=== PATIENT | female | born 1980 | race Caucasian/White ===

== ENCOUNTER 2019-01-18 21:55 | Emergency (ER) | payer SELFPAY ==
[2019-01-18 22:19] LABS: Bilirubin Negative (Negative); Clarity Slightly Cloudy (Clear); Glucose, Urine (Dipstick) Negative (Negative); Leukocyte Moderate (Negative); Nitrite Positive (Negative); Protein, Urine (Dipstick) 30 mg/dL (Neg-Trace); Specific Gravity, Urine 1.025 (1.005-1.030); pH, Urine 5.5 (5.0-9.0)
[2019-01-18 22:20] LABS: Blood, Urine Trace (Negative)
--- NOTE | 2019-01-18 22:21 | RAD ---
EXAM: Chest 2 views: HISTORY: Fever and body aches COMPARISON: None. FINDINGS: There is a normal-sized cardiomediastinal silhouette. There is no evidence of consolidation, mass, or pleural effusion. The bones are unremarkable. IMPRESSION: No evidence of acute cardiopulmonary disease
[2019-01-18 22:22] LABS: Bacteria/HPF 4+ HPF (None Seen); Squamous Epithelial 0-3 HPF (0-3); Transitional Epithelial 0-3 HPF (0-3); WBC/HPF 21-50 HPF (0-3)
[2019-01-18] MEDS ORDERED: cefTRIAXone\\ROCEPHIN 1 GM VIAL ONE (22:25)
[2019-01-18] MEDS ORDERED: Nitrofurantoin Monohyd/M-Cryst 100 MG CAP ONE (22:25)
== END 2019-01-18 22:34 | disposition home or self-care (01) ==
LOC: BURERS 21:55
DX: N12 Tubulo-interstitial nephritis, not specified as acute or chronic (principal); F17.210 Nicotine dependence, cigarettes, uncomplicated
CPT/HCPCS: 71046; 81003; 81015; 87077; 87086; 87186; 96372; J0696

== ENCOUNTER 2019-02-11 01:03 | Emergency (ER) | payer SELFPAY ==
[2019-02-11] MEDS ORDERED: Cyclobenzaprine 10 MG TAB ONE (01:26)
[2019-02-11] MEDS ORDERED: Ketorolac Tromethamine 30 MG/ML VIAL ONE (01:26)
== END 2019-02-11 01:37 | disposition home or self-care (01) ==
LOC: BURERS 01:03
DX: M54.16 Radiculopathy, lumbar region (principal); M79.605 Pain in left leg; F17.210 Nicotine dependence, cigarettes, uncomplicated
CPT/HCPCS: 96372; J1885

== ENCOUNTER 2019-04-13 19:43 | Emergency (ER) | payer SELFPAY ==
--- NOTE | 2019-04-13 23:04 | RAD ---
SOFT TISSUE NECK: 04/13/2019 FINDINGS: No fracture or definite opaque foreign body is seen. The prevertebral soft tissues are normal in thi ckness. If symptoms persist then a CT of the neck to see finer detail could be useful. IMPRESSION: No definite acute findings. POS: HOME
== END 2019-04-13 20:31 | disposition home or self-care (01) ==
LOC: BURERS 19:43
DX: T17.228A Food in pharynx causing other injury, initial encounter (principal); F17.210 Nicotine dependence, cigarettes, uncomplicated; Z85.41 Personal history of malignant neoplasm of cervix uteri; Z79.899 Other long term (current) drug therapy
CPT/HCPCS: 42809; 70360

== ENCOUNTER 2019-05-11 16:07 | Emergency (ER) | payer SELFPAY ==
[2019-05-11] MEDS ORDERED: Lorazepam 2 MG/ML VIAL ONE (16:30)
== END 2019-05-11 16:43 | disposition home or self-care (01) ==
LOC: BURERS 16:07
DX: R56.9 Unspecified convulsions (principal)
CPT/HCPCS: 96372; 99283; J2060

== ENCOUNTER → 2019-06-08 | Emergency (ER) | payer SELFPAY ==
[~2019-06-08] MED LIST: AMOXicillin 250 MG CAP ONE
== END ==
LOC: BURERS 10:07
DX: J02.9 Acute pharyngitis, unspecified (principal); R60.0 Localized edema; F17.210 Nicotine dependence, cigarettes, uncomplicated; F41.9 Anxiety disorder, unspecified; F31.9 Bipolar disorder, unspecified; Z79.899 Other long term (current) drug therapy
CPT/HCPCS: 87804; 99283

== ENCOUNTER 2019-06-24 20:22 | Emergency (ER) | payer SELFPAY | END 2019-06-24 20:40 | disposition home or self-care (01) | LOC: BURERS 20:22 | DX: H92.02 Otalgia, left ear (principal); F17.210 Nicotine dependence, cigarettes, uncomplicated; F31.9 Bipolar disorder, unspecified; F41.9 Anxiety disorder, unspecified; F42.9 Obsessive-compulsive disorder, unspecified | CPT/HCPCS: 99281 ==

== ENCOUNTER 2019-07-01 10:14 | Emergency (ER) | payer SELFPAY | END 2019-07-01 11:15 | disposition home or self-care (01) | LOC: BURERS 10:14 | DX: R51 Headache (principal); F41.9 Anxiety disorder, unspecified; F31.9 Bipolar disorder, unspecified; F17.210 Nicotine dependence, cigarettes, uncomplicated; F42.9 Obsessive-compulsive disorder, unspecified ==